=== PATIENT | male | born 2000 | race Caucasian/White ===

== ENCOUNTER 2018-01-17 05:35 | Day surgery (SDC) | payer BC, OTHER ==
[~2018-01-17] VITALS: Ht 185.4 cm; Wt 122.5 kg
--- NOTE | ~2018-01-17 | O ---
[facility] [place] [address] OPERATIVE REPORT Name: DANIELA MULLER Room #: 150-10 [facility] M..#: [id number] Admission: 01/17/18 Attend Phys: Aram Aguillon MD Discharge: Date of : 98 Report #: [id number] THIS REPORT FOR: //name// CC: FAM unknown Aram Aguillon DATE OF SERVICE: 01/17/2018 PREOPERATIVE DIAGNOSIS: Left ankle trimalleolar fracture. POSTOPERATIVE DIAGNOSIS: Left ankle trimalleolar fracture. PROCEDURE: Left ankle open reduction internal fixation, trimalleolar fracture. SURGEON: Aram Aguillon MD. MARINE ELECTRICIAN APPRENTICE: Yovana Hart. ANESTHESIA: General. ESTIMATED BLOOD LOSS: Minimal. DRAINS: None. TOURNIQUET TIME: 45 minutes. DESCRIPTION OF PROCEDURE: The patient brought to the operating room where he was placed under general anesthesia. Once under adequate general anesthesia, his left lower extremity was prepped and draped in sterile manner. The extremity was elevated, exsanguinated, tourniquet placed to 300 mmHg. A lateral incision approximately 10 cm in length was made over the distal fibula, dissected down through the soft tissue to the fracture site. This was a very comminuted fracture site. Therefore, a bridging 1/3 tubular plate was placed. Three fixation screws were achieved distally and 5 proximal to the fracture site. Excellent fixation and alignment was achieved in this manner utilizing the 1/3 tubular plate from [employer]. Any hematoma had been evacuated prior to placing the plate. Images verified the position of the plate to be satisfactory. A 4-cm incision was made overlying the medial malleolus. This was dissected down through the soft tissue to the medial malleolar fracture. Any hematoma was evacuated from the fracture site along with any soft tissue. Once this was done, the medial malleolar fracture was then subsequently reduced with a bone reduction tenaculum and fixed into place with two 4.0 cannulated screws placed under fluoroscopic guidance. Excellent fixation and alignment was achieved in this manner as verified under fluoroscopy. The wounds were irrigated copiously and closed with 2-0 Vicryl in subcutaneous tissues, willian for the skin. The wounds were dressed with Xeroform, 4 x 4s, and a sterile soft [address] [address] OPERATIVE REPORT Name: DANIELA MULLER Room #: 150-10 [facility] M.R.#: [id number] Admission: 01/17/18 Attend Phys: Aram Aguillon MD Discharge: Date of : 98 Report #: [id number] compressive dressing with a short leg cast was placed. Tourniquet was let down at approximately 45 minutes. Toes pink and warm with good capillary refill. There were no complications from the procedure. The patient tolerated the procedure well and went to recovery room without incident. <ELECTRONICALLY SIGNED> By: Aram Aguillon MD 01/17/18 1419 1200 1217 Aram Aguillon MD /alana
[~2018-01-17 05:35] MED LIST: DEPAKOTE ER500 MG PO; PERCOCET 7.5-31 EAC1 PO; PERCOCET PO
[2018-01-17] MEDS ORDERED: ASPIRIN325 PO (11:54)
[2018-01-17 12:45] VITALS: BP 140/87
[2018-01-17 14:19] VITALS: BP 140/87
== END 2018-01-17 14:32 | disposition home or self-care (01) ==
LOC: OR 05:35 → TBA 05:35 → OR 08:34
DX: S82.852A Displaced trimalleolar fracture of left lower leg, initial encounter for closed fracture (principal); F31.9 Bipolar disorder, unspecified; F20.9 Schizophrenia, unspecified; Z79.82 Long term (current) use of aspirin; Z79.891 Long term (current) use of opiate analgesic; X58.XXXA Exposure to other specified factors, initial encounter; Y93.89 Activity, other specified; Y92.89 Other specified places as the place of occurrence of the external cause; Y99.8 Other external cause status
CPT/HCPCS: 50010; 50101; 50348; 50386; 51131; 51412; 56524; 56525; 57091; 62110; 62900; 64042; 70005

== ENCOUNTER 2018-11-02 11:58 | Emergency (ER) | payer BC, OTHER ==
[~2018-11-02] VITALS: Ht 182.9 cm; Wt 122.5 kg
--- NOTE | ~2018-11-02 | EMS ---
[address] [address] EMS Patient Care Report Name: DANIELA MULLER Room #: DEP DANDRE Hdz#: [id number] Admission: 11/02/18 Attend Phys: Discharge: 11/02/18 Date of : 98 Report #: [id number] THIS REPORT FOR: //name// Report Transmitted: 11/05/2018 12:07 EMS Care Summary [facility] MED-ACT Incident [id number] @ 11/02/2018 11:24 Incident Location [address] [place] [address] Patient DANIELA MULLER Male, 18 Years 2000 Patient Address [address] [place] [address] Patient History Behavioral/Psychiatric Disorder,Autistic Disorder, Patient Medications Other, Depakote, Chief Complaint geberalizes weakness Disposition Transported No Lights/[place] Dispatch Reason Convulsions/Seizure Transported To [facility] Narrative C weakness H Per the staff at the clinic the pt was walking and had a near syncopel episode and may have had a seizure. Per dad the pt was just not as alert as [address] [address] EMS Patient Care Report Name: DANIELA MULLER Room #: DEP Tonny.#: [id number] Admission: 11/02/18 Attend Phys: Discharge: 11/02/18 Date of : 98 Report #: [id number] normal and did not ever loose consciousness. Dad did not see any seizure activity. Also per dad the pt has been hearing more voices lately and is compliant with his meds. The pt c/o feeling weak all over. Denies head ache, vision change, n/v, fever, chills, sob, c/p, abd pain A R assess vs moved to the cot then to the unit transport bio com no changes to [facility] ER 10 T transported to [facility] per father request D wheeled in to the ER to bed 10 slid over report to RN Initial Vitals @PTAP: 87,R: 20,BP: 142/94,Pain: 0/10,GCS: 15,SpO2: 99,Revised Trauma: 12,KS Suspected: false @11:49P: 80,R: 16,BP: 118/78,Pain: 0/10,GCS: 15,SpO2: 98,Revised Trauma: 12, Assessments @11:40MENTAL:Other,Person Oriented,Place Oriented,Event Oriented,Time Oriented,SKIN:HEENT:Head/Face: No Abnormalities,LUNG SOUNDS:General: No Abnormalities,ABDOMEN:General: No Abnormalities,PELVIS//GI:EXTREMITIES:Right Leg: Other,Left Leg: Other,Left Arm: No Abnormalities,Right Arm: No Abnormalities,PULSE:NEURO:Abnormal Gait, Impression Generalized Weakness Timeline ROUTE SALES REPRESENTATIVE,BP: 142/94 M,PULSE: 87,RR: 20 R,SPO2: 99 Ox,ETCO2: ,BG: ,PAIN: 0,GCS: 15, 11:23,Call Received 11:23,Psap Call 11:24,Dispatched 11:24,En Route 11:31,On Scene 11:33,At Patient 11:44,Depart Scene 11:49,BP: 118/78 M,PULSE: 80,RR: 16 R,SPO2: 98 Ox,ETCO2: ,BG: ,PAIN: 0,GCS: 15, 11:54,At Destination 12:08,Call Closed Disclaimer v1.1 Copyright 2019 [employer] This EMS Care Summary contains data elements from the applicable legal record [address] [address] EMS Patient Care Report Name: DANIELA MULLER Room #: DEP Andreina#: [id number] Admission: 11/02/18 Attend Phys: Discharge: 11/02/18 Date of : 98 Report #: [id number] (which may be displayed differently). It is designed to provide pertinent information for the following purposes: continuity of care, clinical quality, and state data reporting. The complete legal record is available to ED staff and administrators of the receiving hospital in [employer]'s Patient Tracker. All data is provided "as is."
[~2018-11-02 11:58] MED LIST changes: +ASPIRIN325 PO
[2018-11-02 13:31] LABS: ABSOLUTE NEUTROPHILS 4.5 thou/uL (1.4-8.2); BASOPHILS 0.8 % (0.0-2.0); EOSINOPHILS 2.7 % (0.0-3.0); HEMOGLOBIN 16.3 gm/dL (14.0-18.0); LYMPHOCYTES 29.1 % (24.0-44.0); MCH 31.4 pg (26.0-34.0); MCHC 34.8 g/dL (28.0-37.0); MCV 90.3 fL (80.0-100.0); MONOCYTES 11.1 % (1.0-8.0); PLATELET COUNT 235 thou/uL (150-400); POLYS 56.3 % (36.0-66.0); RBC 5.21 mil/uL (4.50-6.00); RDW 13.2 % (10.5-14.5)
[2018-11-02 13:35] LABS: ANION GAP 9 mmol/L (7-16); BUN 15 mg/dL (7-18); CALCIUM 10.5 mg/dL (8.5-10.1); CHLORIDE 100 mmol/L (98-107); CO2 25 mmol/L (21-32); CREATININE 0.9 mg/dL (0.7-1.3); GLUCOSE 103 mg/dL (74-106); POTASSIUM 4.4 mmol/L (3.5-5.1); SODIUM 134 mmol/L (136-145)
[2018-11-02 13:41] LABS: AMP/METHAMP Negative (Negative); BARBITURATES Negative (Negative); BENZODIAZEPINES Negative (Negative); COCAINE Negative (Negative); METHADONE Negative (Negative); OPIATES Negative (Negative); PCP Negative (Negative)
[2018-11-02 13:43] LABS: TROPONIN-I <0.06 ng/mL (<0.06)
[2018-11-02 17:01] VITALS: BP 135/76
--- NOTE | 2018-11-03 10:53 | EKG ---
[place] [address] [email or web address] [address] ELECTROCARDIOGRAM REPORT Name: DANIELA MULLER Room #: DEP DANDRE Hdz#: [id number] Admission: 11/02/18 Attend Phys: Discharge: 11/02/18 Date of : 98 Report #: [id number] THIS REPORT FOR: //name// [facility] ED Test Date: 2018-11-02 Test Time: 13:58:39 Pat Name: DANIELA MULLER Department: Room: Gender: Family Services Assistant: [place] : 2000 Requested By: Gerald Hill Order Number: [id number] MD: Rodo Garcia Measurements Intervals [place] Rate: 67 P: 22 WI: 154 QRS: 11 QRSD: 85 T: 34 QT: 366 QTc: 387 Interpretive Statements Sinus rhythm ST elev, probable normal early repol pattern No previous ECG available for comparison Electronically Signed On 11-03-2018 10:53:41 CDT by Rodo Garcia [email or web address] <ELECTRONICALLY SIGNED> By: Rodo Garcia MD 11/03/18 1053 1358 1358 Rodo Garcia MD /EPI
== END 2018-11-02 17:12 | disposition home or self-care (01) ==
LOC: ER 11:58
PROVIDERS: Emergency Medicine
DX: R55 Syncope and collapse (principal); F20.9 Schizophrenia, unspecified; F31.9 Bipolar disorder, unspecified

== ENCOUNTER 2019-02-13 08:45 | Day surgery (SDC) | payer BC, OTHER ==
[~2019-02-13] VITALS: Ht 180.3 cm; Wt 120.7 kg
--- NOTE | ~2019-02-13 | O ---
[facility] [place] [address] [place] [address] OPERATIVE REPORT Name: DANIELA MULLER Room #: 150-5 [facility]..#: [id number] Admission: 02/13/19 Attend Phys: Aram Aguillon MD Discharge: Date of : 98 Report #: [id number] THIS REPORT FOR: //name// CC: [facility] physician/PCP Aram Aguillon DATE OF SERVICE: 02/13/2019 PREOPERATIVE DIAGNOSIS: Left ankle retained hardware. POSTOPERATIVE DIAGNOSIS: Left ankle retained hardware. PROCEDURE: Left ankle hardware removal. SURGEON: Dr. Aram Aguillon. JEWEL CORNER BRUSHING MACHINE OPERATOR: Yovana Hart. ANESTHESIA: General. ESTIMATED BLOOD LOSS: Minimal. DRAINS: No drains. TOURNIQUET TIME: 30 minutes. DESCRIPTION OF PROCEDURE: The patient was brought to the operating room where he was placed under general anesthesia. Once under adequate general anesthesia, his left lower extremity was prepped and draped in sterile manner. The extremity was elevated, exsanguinated, tourniquet placed at 300 mmHg. Utilizing fluoroscopy for guidance, a guidewire for the 4.0 cannulated screws was then used medially and a small stab incision was made over the wire and sequentially the two screws were then extracted in this fashion with a 4-0 cannulated screwdriver. Laterally, 2 small incisions over the screw heads were made approximately 3 cm in length at the proximal and distal aspects of the plate. Subsequent dissection down to the plate and screw heads was then achieved and the screws were then removed with the small fragment screwdriver. The plate was then freed from any surrounding soft tissue and removed through the proximal incision. The wounds were irrigated copiously and closed with 2-0 Vicryl in subcutaneous tissues and willian for the skin. The wounds were dressed with Xeroform, 4 x 4s, and sterile soft compressive dressing was placed. Tourniquet was let down at 30 minutes. Toes were pink and warm with good capillary refill. [facility] [place] [address] OPERATIVE REPORT Name: DANIELA MULLER Room #: [address] [place] [address]..#: [id number] Admission: 02/13/19 Attend Phys: Aram Aguillon MD Discharge: Date of : 98 Report #: [id number] There were no complications from the procedure. The patient tolerated the procedure well and was taken to recovery room without incident. By: 1049 1117 Aram Aguillon MD /nt
[2019-02-13 09:20] VITALS: BP 136/80
[2019-02-13] MEDS ORDERED: PERCOCET 5-3251 EACH PO (10:17)
[2019-02-13 11:00] VITALS: BP 136/80
== END 2019-02-13 11:55 | disposition home or self-care (01) ==
LOC: OR 08:45 → TBA 09:26 → OR 10:02
DX: T84.84XA Pain due to internal orthopedic prosthetic devices, implants and grafts, initial encounter (principal); M25.572 Pain in left ankle and joints of left foot; F31.9 Bipolar disorder, unspecified; F20.9 Schizophrenia, unspecified; Z98.890 Other specified postprocedural states; Z79.899 Other long term (current) drug therapy; Z79.891 Long term (current) use of opiate analgesic; Y83.8 Other surgical procedures as the cause of abnormal reaction of the patient, or of later complication, without mention of misadventure at the time of the procedure
CPT/HCPCS: 50010; 50101; 50386; 51412; 56524; 57091; 62110; 62900; 70005